=== PATIENT | female | born 1995 | race Caucasian/White ===

== ENCOUNTER 2018-09-01 22:37 | Emergency (ER) | payer MEDICAID ==
--- NOTE | 2018-09-02 01:27 | ER Document Report ---
ED General - General Chief Complaint: Sore Throat Stated Complaint: SORE THROAT,COUGH Time Seen by Provider: 09/01/18 23:58 Notes: 23-year-old female presents to the emergency department with sore throat times 3 days. She states that she has a history of frequent strep throat and she is concerned that she has it again because she has an 8-month-old son she does not want him to get it. She endorses low-grade fever for which she took Tylenol and responded to it, endorses sore throat, chest pain with coughing, endorses postnasal drip. She does endorse some mild maxillary sinus pressure and sore lymph nodes underneath her jaw. She did get her flu shot this year. She denies headache, chills, nausea, vomiting, diarrhea. She denies photophobia. TRAVEL OUTSIDE OF THE [place] IN LAST 30 DAYS: No Past Medical History - General Information source: Patient - Social History Smoking Status: Never Smoker Frequency of alcohol use: None Drug Abuse: None Family History: Reviewed & Not Pertinent Patient has suicidal ideation: No Patient has homicidal ideation: No Pulmonary Medical History: Reports: Hx Asthma Endocrine Medical History: Reports: Hx Diabetes Mellitus Type 2 - pre diabetic Renal/ Medical History: Denies: Hx Peritoneal Dialysis Past Surgical History: Reports: Hx Tonsillectomy Review of Systems - Review of Systems Constitutional: See HPI EENT: See HPI Cardiovascular: See HPI Respiratory: See HPI Gastrointestinal: See HPI Genitourinary: See HPI Female Genitourinary: No symptoms reported Musculoskeletal: No symptoms reported Skin: No symptoms reported Hematologic/Lymphatic: No symptoms reported Neurological/Psychological: No symptoms reported Physical Exam - Vital signs Vitals: Temp Pulse Resp BP Pulse Ox 98.7 F 87 17 117/70 98 09/01/18 22:42 09/01/18 22:42 09/01/18 22:42 09/01/18 22:42 09/01/18 22:42 - Notes Notes: Reviewed vital signs and nursing note as charted by RN. CONSTITUTIONAL: Well-appearing, well-nourished, acting appropriately for age HEAD: Normocephalic, atraumatic, no swelling EYES: PERRL, Conjunctivae clear, no drainage, EOMI, no scleral icterus ENT: External ears without lesions, External auditory canal is patent, TMs without erythema, R TM with some fluid behind it, landmarks clear and well visualized, no rhinorrhea, Pharynx without erythema or lesions, no tonsillar hypertrophy, airway patent, mucous membranes pink and moist NECK: Supple, no cervical lymphadenopathy, no masses CARD: Regular rate and rhythm, no murmurs, no rubs, no gallops, capillary refill < 2 seconds, symmetric pulses RESP: The lungs are clear to auscultation bilaterally, no wheezing, no rales, no rhonchi. Respiratory rate and effort are normal, normal chest excursion. No respiratory distress, no retractions, no stridor, no nasal flaring, no accessory muscle use. ABD/GI: Normal bowel sounds, non-distended, soft, non-tender, no rebound, no guarding, no palpable organomegaly EXT: Normal ROM in all joints, non-tender to palpation, no effusions, no edema SKIN: Normal color for age and race, warm, dry, good turgor, no acute lesions noted NEURO: No facial asymmetry, moves all extremities equally, motor and sensory function intact Course - Re-evaluation Re-evalutation: 09/02/18 01:26 Pleasant 23-year-old female presents to the emergency department with chief complaint of sore throat times 3 days. She is concerned because she has had multiple bouts of strep throat in the past she has an 8-month old son at the house. Shared decision making I ordered a rapid strep test which was negative. At this time patient most likely has a mild virus that she can treat with supportive measures. Stable for discharge. - Vital Signs Vital signs: Temp Pulse Resp BP Pulse Ox 98.7 F 87 17 117/70 98 09/01/18 22:42 09/01/18 22:42 09/01/18 22:42 09/01/18 22:42 09/01/18 22:42 Discharge - Discharge Clinical Impression: Viral illness Condition: Good Disposition: HOME, SELF-CARE Instructions: Sore Throat ([facility]), Viral Syndrome ([facility])
[2018-09-02] MEDS ORDERED: ALBUTEROL SULFATE HFA (90 MCG/PUFF) 8 GM MDI (1 MDI/ER DISP) IH ONE (01:34)
[2018-09-02 02:08] VITALS: BP 118/64
== END 2018-09-02 02:06 | disposition home or self-care (01) ==
LOC: ER 22:37
DX: B34.9 Viral infection, unspecified (principal); J02.9 Acute pharyngitis, unspecified; R05 Cough; R07.9 Chest pain, unspecified; R09.82 Postnasal drip; J34.89 Other specified disorders of nose and nasal sinuses; J45.909 Unspecified asthma, uncomplicated
CPT/HCPCS: 99282; 87070; 87880; J3490

== ENCOUNTER 2019-09-30 06:54 | Emergency (ER) | payer BC, MEDICAID ==
[2019-09-30 08:15] LABS: A TYPE INFLUENZA AG NEGATIVE (NEGATIVE); B INFLUENZA AG NEGATIVE (NEGATIVE)
--- NOTE | 2019-09-30 08:47 | ER Document Report ---
ED ENT - General Chief Complaint: Sore Throat Stated Complaint: COUGH/FEVER/VOMITING Time Seen by Provider: 09/30/19 07:58 Primary Care Provider: CHET BURT MD [Primary Care Provider] - Follow up as needed Mode of Arrival: Ambulatory Information source: Patient TRAVEL OUTSIDE OF THE [place] IN LAST 30 DAYS: No - HPI Notes: Patient presents with 3 to 4 days of sinus congestion and a yellow-green productive cough. She also has postnasal drip. She has had some sore throat. She has had subjective fever and chills. As well as generalized myalgias. The generalized myalgias radiate throughout her body. They are worse with exertion and better with rest. They are mild to moderate in intensity and intermittent. No vomiting or diarrhea. - Related Data Allergies/Adverse Reactions: acetaminophen [From Percocet] Allergy (Verified 09/30/19 07:23) cephalexin [From Keflex] Allergy (Verified 09/30/19 07:23) oxycodone [From Percocet] Allergy (Verified 09/30/19 07:23) Home Medications: birthcontrol Past Medical History - General Information source: Patient - Social History Smoking Status: Never Smoker Chew tobacco use (# tins/day): No Frequency of alcohol use: None Drug Abuse: None Family History: Reviewed & Not Pertinent Patient has suicidal ideation: No Patient has homicidal ideation: No Pulmonary Medical History: Reports: Hx Asthma Endocrine Medical History: Reports: Hx Diabetes Mellitus Type 2 - pre diabetic Renal/ Medical History: Denies: Hx Peritoneal Dialysis Past Surgical History: Reports: Hx Tonsillectomy Review of Systems - Review of Systems Constitutional: Chills, Fever, Malaise, Weakness EENT: Nose congestion, Nose discharge Respiratory: Cough. denies: Short of breath -: Yes All other systems reviewed and negative Physical Exam - Vital signs Vitals: Temp Pulse Resp BP Pulse Ox 98.3 F 92 14 117/69 100 09/30/19 07:21 09/30/19 07:21 09/30/19 07:21 09/30/19 07:21 09/30/19 07:21 Interpretation: Normal - General General appearance: Appears well, Alert - HEENT Head: Normocephalic, Atraumatic Eyes: Normal Pupils: PERRL - Respiratory Respiratory status: No respiratory distress Chest status: Nontender Breath sounds: Normal Chest palpation: Normal - Cardiovascular Rhythm: Regular Heart sounds: Normal auscultation Murmur: No - Abdominal Inspection: Normal Distension: No distension Bowel sounds: Normal Tenderness: Nontender Organomegaly: No organomegaly - Back Back: Normal, Nontender - Extremities General upper extremity: Normal inspection, Nontender, Normal color, Normal ROM, Normal temperature General lower extremity: Normal inspection, Nontender, Normal color, Normal ROM, Normal temperature, Normal weight bearing. No: Franny's sign - Neurological Neuro grossly intact: Yes Cognition: Normal Orientation: AAOx4 Carlos A Coma Scale Eye Opening: Spontaneous [place] Coma Scale Verbal: Oriented [place] Coma Scale Motor: Obeys Commands Carlos A Coma Scale Total: 15 Speech: Normal Motor strength normal: LUE, RUE, LLE, RLE Sensory: Normal - Psychological Associated symptoms: Normal affect, Normal mood - Skin Skin Temperature: Warm Skin Moisture: Dry Skin Color: Normal Course - Re-evaluation Re-evalutation: 09/30/19 08:45 Patient's flu test was reviewed it is negative. Strep test also reviewed it was negative. - Vital Signs Vital signs: Temp Pulse Resp BP Pulse Ox 98.3 F 92 14 117/69 100 09/30/19 07:21 09/30/19 07:21 09/30/19 07:21 09/30/19 07:21 09/30/19 07:21 Discharge - Discharge Clinical Impression: Sinusitis Qualifiers: Sinusitis location: unspecified location Chronicity: acute Recurrence: non- recurrent Qualified Code(s): J01.90 - Acute sinusitis, unspecified Condition: Stable Disposition: HOME, SELF-CARE Instructions: Sinusitis ([facility]) Prescriptions: Amoxicillin 1 tab PO TID 10 Days #30 tab Forms: Return to Work Referrals: CHET BURT MD [Primary Care Provider] - Follow up in 3-5 days
[2019-09-30 09:08] VITALS: BP 112/62
== END 2019-09-30 09:07 | disposition home or self-care (01) ==
LOC: ER 06:54
DX: J01.90 Acute sinusitis, unspecified (principal); J02.9 Acute pharyngitis, unspecified; R05 Cough; R50.9 Fever, unspecified; R11.10 Vomiting, unspecified; R09.81 Nasal congestion; R09.89 Other specified symptoms and signs involving the circulatory and respiratory systems; M79.10 Myalgia, unspecified site; J45.909 Unspecified asthma, uncomplicated; E11.9 Type 2 diabetes mellitus without complications
CPT/HCPCS: 87070; 87804; 87880; 99283

== ENCOUNTER 2019-12-30 17:52 | Emergency (ER) | payer BC, MEDICAID ==
[2019-12-30] MEDS ORDERED: PREDNISONE 20 MG TABLET PO ONE (18:01)
[2019-12-30] MEDS ORDERED: FAMOTIDINE 20 MG TABLET PO ONE (18:01)
[2019-12-30] MEDS ORDERED: DIPHENHYDRAMINE HCL 25 MG CAPSULE PO ONE (18:02)
--- NOTE | 2019-12-30 18:03 | ER Document Report ---
ED Medical Screen (RME) - General Chief Complaint: Allergic Reaction Stated Complaint: POSSIBLE ALLERGIC REACTION Time Seen by Provider: 12/30/19 17:58 Primary Care Provider: CHET BURT MD [Primary Care Provider] - Follow up as needed Notes: Patient is a 24-year-old female who presents emergency department with swelling to her right eye. Patient states that she feels like it is a fiery sensation. When she was at work she was unsure if she may be got exposed to a customers cologne or something new, but she ended up having swelling to her right eye. Denies any shortness of breath or difficulty breathing. Denies a history of asthma. She takes Zyrtec on a daily basis. Exam: Edema noted to right eyelid. Patient will be given Pepcid and prednisone and will be evaluated by another provider. I have greeted and performed a rapid initial assessment of this patient. A comprehensive ED assessment and evaluation of the patient, analysis of test results and completion of medical decision making process will be conducted by an additional ED providers. TRAVEL OUTSIDE OF THE [place] IN LAST 30 DAYS: No - Related Data Allergies/Adverse Reactions: acetaminophen [From Percocet] Allergy (Verified 09/30/19 07:23) cephalexin [From Keflex] Allergy (Verified 09/30/19 07:23) oxycodone [From Percocet] Allergy (Verified 09/30/19 07:23) Past Medical History Pulmonary Medical History: Reports: Hx Asthma Endocrine Medical History: Reports: Hx Diabetes Mellitus Type 2 - pre diabetic Renal/ Medical History: Denies: Hx Peritoneal Dialysis Past Surgical History: Reports: Hx Tonsillectomy Physical Exam - Vital signs Vitals: Temp Pulse Resp BP Pulse Ox 98.7 F 79 16 129/87 H 100 12/30/19 17:55 12/30/19 17:55 12/30/19 17:55 12/30/19 17:55 12/30/19 17:55 Course - Vital Signs Vital signs: Temp Pulse Resp BP Pulse Ox 98.7 F 79 16 129/87 H 100 12/30/19 17:55 12/30/19 17:55 12/30/19 17:55 12/30/19 17:55 12/30/19 17:55 Doctor's Discharge - Discharge Referrals: CHET BURT MD [Primary Care Provider] - Follow up as needed
--- NOTE | 2019-12-30 18:36 | ER Document Report ---
ED Allergic Reaction - General Chief Complaint: Facial Swelling Stated Complaint: POSSIBLE ALLERGIC REACTION Time Seen by Provider: 12/30/19 17:58 Primary Care Provider: CHET BURT MD [ACTIVE STAFF] - Follow up as needed Mode of Arrival: Ambulatory Information source: Patient Notes: 24-year-old female presented to ED for complaint of swelling to the right side o f her face with some mild swelling to her eye. She states she gets this usually in the end of December beginning of January but this is early for her to have these. She states she was at work and she is unsure if maybe she got some clot in her eyes. She has extremely very minimal swelling to the right eye she does have this swelling to the right nasal turbinate. She is not short of breath has no difficulty breathing respirations regular nonlabored walking with a even steady gait. She was given Pepcid and prednisone before I examined her. She states she could not take Benadryl tonight because it would make her too sleepy. She states she can take her Zyrtec as she said normally takes. TRAVEL OUTSIDE OF THE [place] IN LAST 30 DAYS: No - HPI Onset: This afternoon Onset/Duration: Gradual Quality of pain: No pain Severity: None Pain Level: Denies Identified cause: No Swelling: Face - She states she has swelling to the right side of her face there is very minimal minute swelling to her right eyelid she does have swelling to her right nasal turbinate no swelling to the lips tongue or any other area of her face Associated symptoms: None Similar symptoms previously: Yes Recently seen / treated by doctor: No - Related Data Allergies/Adverse Reactions: acetaminophen [From Percocet] Allergy (Verified 09/30/19 07:23) cephalexin [From Keflex] Allergy (Verified 09/30/19 07:23) oxycodone [From Percocet] Allergy (Verified 09/30/19 07:23) Home Medications: zyrtec Past Medical History - General Information source: Patient - Social History Smoking Status: Never Smoker Chew tobacco use (# tins/day): No Frequency of alcohol use: None Drug Abuse: None Lives with: Family Family History: Reviewed & Not Pertinent Patient has homicidal ideation: No - Past Medical History Cardiac Medical History: Reports: None Pulmonary Medical History: Reports: Hx Asthma EENT Medical History: Reports: None Neurological Medical History: Reports: None Endocrine Medical History: Reports: None, Hx Diabetes Mellitus Type 2 - pre diabetic Renal/ Medical History: Reports: None Malignancy Medical History: Reports: None GI Medical History: Reports: None Musculoskeletal Medical History: Reports None Skin Medical History: Reports None Psychiatric Medical History: Reports: None Traumatic Medical History: Reports: None Infectious Medical History: Reports: None Past Surgical History: Reports: Hx Tonsillectomy Review of Systems - Review of Systems EENT: Sinus pressure, Other - Mild swelling to the right eyelid Cardiovascular: No symptoms reported Respiratory: No symptoms reported Gastrointestinal: No symptoms reported Genitourinary: No symptoms reported Female Genitourinary: No symptoms reported Musculoskeletal: No symptoms reported Skin: No symptoms reported Hematologic/Lymphatic: No symptoms reported Neurological/Psychological: No symptoms reported -: Yes All other systems reviewed and negative Physical Exam - Vital signs Vitals: Temp Pulse Resp BP Pulse Ox 98.7 F 79 16 129/87 H 100 12/30/19 17:55 12/30/19 17:55 12/30/19 17:55 12/30/19 17:55 12/30/19 17:55 Interpretation: Normal - General General appearance: Appears well, Alert - HEENT Head: Normocephalic, Atraumatic Eyes: Other - Very minimal swelling to the right upper eyelid Pupils: PERRL Ears: Normal External canal: Normal Tympanic membrane: Normal Sinus: Normal Nasal: Swelling, Clear rhinorrhea Mouth/Lips: Normal Mucous membranes: Normal Pharynx: Normal Neck: Normal - Respiratory Respiratory status: No respiratory distress Chest status: Nontender Breath sounds: Normal Chest palpation: Normal - Cardiovascular Rhythm: Regular Heart sounds: Normal auscultation Murmur: No - Abdominal Inspection: Normal Distension: No distension Bowel sounds: Normal Tenderness: Nontender Organomegaly: No organomegaly - Back Back: Normal, Nontender - Extremities General upper extremity: Normal inspection, Nontender, Normal color, Normal ROM, Normal temperature General lower extremity: Normal inspection, Nontender, Normal color, Normal ROM, Normal temperature, Normal weight bearing. No: Franny's sign - Neurological Neuro grossly intact: Yes Cognition: Normal Orientation: AAOx4 [place] Coma Scale Eye Opening: Spontaneous Carlos A Coma Scale Verbal: Oriented [place] Coma Scale Motor: Obeys Commands [place] Coma Scale Total: 15 Speech: Normal Motor strength normal: LUE, RUE, LLE, RLE Sensory: Normal - Psychological Associated symptoms: Normal affect, Normal mood - Skin Skin Temperature: Warm Skin Moisture: Dry Skin Color: Normal Course - Vital Signs Vital signs: Temp Pulse Resp BP Pulse Ox 98.6 F 74 20 125/81 100 12/30/19 18:35 12/30/19 18:35 12/30/19 18:35 12/30/19 18:35 12/30/19 18:35 Discharge - Discharge Clinical Impression: Seasonal allergies Condition: Stable Disposition: HOME, SELF-CARE Additional Instructions: ACUTE ALLERGIC REACTION: Your symptoms are due to an allergic reaction. Allergy can cause hives, swelling of the hands, feet, and face, hoarseness, and difficulty swallowing or breathing. It may be due to exposure to medication, animal dander, foods, infection, or insect bites. Medication is a common cause, even when prior use of this same medication caused no problems. Acute treatment may include adrenalin and antihistamines. Usually, the specific allergic agent can't be identified unless repeated episodes occur. Home treatment includes the following: (1) Stop any suspicious medications. This will be discussed with you. (2) Oral antihistamines for the next four to five days. Example, diphenhydramine (Benadryl) every four hours. (3) You may also use cimetidine (Tagamet), ranitidine (Zantac), or famotidine (Pepcid) every four hours if diphenhydramine is not controlling itching and hives. (4) Avoid aspirin until the hives completely disappear. (5) Avoid hot baths or showers until the hives are completely gone. Call the doctor if faintness, difficulty swallowing, tightness in the chest, or wheezing occurs. STEROID MEDICATION: You have been given a medicine of the cortisone/steroid class. This medication is used to control inflammation or allergy. It is usually only given for a short period of time, until the acute process subsides. There are usually no side effects from short-term use of cortisone-like medications. Some persons feel an increased sense of well-being and are not sleepy at bedtime. Long-term use of cortisone medications is best avoided, unless required for a severe condition. If your condition does not remit, or relapses after the course of corticosteroid medication, you should consult your physician. ACID-SUPPRESSING MEDICATION: You have a prescription for medicine which reduces the stomach's secretion of acid. Examples include Zantac, Tagament, and Pepcid. These drugs are often used to allow healing of ulcers or esophagitis. They may be needed to prevent recurrence of ulcers in some patients, or to prevent damage from acid reflux in the esophagus. Take all medication as prescribed, even after the pain is gone. Regular antacids may be added as needed if you have symptoms while taking this medicine. These medications sometimes are prescribed for allergic reactions because they have anti-histaminic effects and relieve the rash and itching of the reaction. There are usually no side effects from this medication. But, in rare cases and particularly in the elderly, serious problems can occur. Contact your doctor if there is fever, rash, hallucinations, confusion, or unusual bruising. Contact your doctor at once if you develop lightheadedness, black or bloody stool, or bloody vomitus. ANTIHISTAMINES: An antihistamine has been given and/or prescribed to control your symptoms. Antihistamines are used for many reasons, including itching, watering eyes, runny nose, allergic swelling, hives, and insect stings. Antihistamines may cause drowsiness, especially with the first dose. Do not operate machinery or drive while under the effects of the medication. Other common side effects include dry mouth and eyes. In older persons, antihistamines can occasionally cause urinary retention, constipation, and troub le focusing the eyes. Do not combine the medication with alcohol, or with any other medication without talking to your doctor. USE OF DIPHENHYDRAMINE: The use of diphenhydramine (Benadryl) has been recommended to control allergic symptoms. The 25 mg strength is available over- the-counter, as well as the elixir. This antihistamine is used for many symptoms. It's useful for itching, watering eyes and nose, allergic swelling, hives, and insect stings. The medication can be repeated four times daily. Age Elixir (12.5 mg/tsp) 25 mg pill 2-3 yr 1/2 tsp 4-8 yr 1 tsp 9-14 yr 2 tsp one tab adult 1-2 tabs Antihistamines may cause drowsiness, especially with the first dose. Do not operate machinery or drive while under the effects of the medication. Do not combine the medication with alcohol, or with any other medication without talking to your doctor. FOLLOW-UP CARE: If you have been referred to a physician for follow-up care, call the physicians office for an appointment as you were instructed or within the next two days. If you experience worsening or a significant change in your symptoms, notify the physician immediately or return to the Emergency Department at any time for re-evaluation. Prescriptions: Prednisone [Deltasone 20 mg Tablet] 2 tab PO DAILY 3 Days #6 tablet Forms: Elevated Blood Pressure Referrals: CHET BUTR MD [ACTIVE STAFF] - Follow up as needed
[2019-12-30 18:37] VITALS: BP 125/81
== END 2019-12-30 18:38 | disposition home or self-care (01) ==
LOC: ER 17:52
DX: T78.40XA Allergy, unspecified, initial encounter (principal); X58.XXXA Exposure to other specified factors, initial encounter; Z88.6 Allergy status to analgesic agent
CPT/HCPCS: 99283; J7512

== ENCOUNTER 2020-02-17 16:40 | Emergency (ER) | payer BC, MEDICAID ==
--- NOTE | 2020-02-17 17:45 | ER Document Report ---
ED Medical Screen (RME) - General Chief Complaint: Vag Bleeding, +preg <12wks Stated Complaint: VAGINAL BLEEDING 6-8 WEEKS PREG Time Seen by Provider: 02/17/20 17:37 Mode of Arrival: Ambulatory Information source: Patient Notes: HPI; 24-year-old female states she had a positive home test yesterday that was positive. LMP 01/01/2020 presents to the emergency room today complaining of bleeding, cramping, passing clots. States she is gone through 6 pads so far today. No meds for pain. PE: Alert and oriented x3. Mild distress noted. Lungs: Clear to auscultation without rales rhonchi wheezes. Heart: Regular rate rhythm without murmurs, rubs, gallops. Abdomen soft nontender, nondistended, positive bowel sounds x4. No Guarding, no rebound, no organomegaly. I have greeted and performed a rapid initial assessment of this patient. A comprehensive ED assessment and evaluation of the patient, analysis of test results and completion of the medical decision making process will be conducted by additional ED providers. I have specifically instructed the patient or family members with the patient to immediately return to any nursing staff should anything change in the patient's condition or with their chief complaint. TRAVEL OUTSIDE OF THE [place] IN LAST 30 DAYS: No - Related Data Allergies/Adverse Reactions: acetaminophen [From Percocet] Allergy (Verified 09/30/19 07:23) cephalexin [From Keflex] Allergy (Verified 09/30/19 07:23) oxycodone [From Percocet] Allergy (Verified 09/30/19 07:23) Past Medical History Pulmonary Medical History: Reports: Hx Asthma Endocrine Medical History: Reports: Hx Diabetes Mellitus Type 2 - pre diabetic Renal/ Medical History: Denies: Hx Peritoneal Dialysis Past Surgical History: Reports: Hx Tonsillectomy Physical Exam - Vital signs Vitals: Temp Pulse Resp BP Pulse Ox 98.7 F 79 16 113/72 99 02/17/20 16:56 02/17/20 16:56 02/17/20 16:56 02/17/20 16:56 02/17/20 16:56 Course - Vital Signs Vital signs: Temp Pulse Resp BP Pulse Ox 98.7 F 79 16 113/72 99 02/17/20 16:56 02/17/20 16:56 02/17/20 16:56 02/17/20 16:56 02/17/20 16:56
[2020-02-17 18:09] LABS: ABSOLUTE EOSINOPHILS # (AUTO) 0.1 10^3/uL (0.0-0.6); ABSOLUTE LYMPHOCYTES (AUTO) 2.7 10^3/uL (0.5-4.7); ABSOLUTE MONOCYTES (AUTO) 0.7 10^3/uL (0.1-1.4); ABSOLUTE NEUT (AUTO) 7.5 10^3/uL (1.7-8.2); BASOPHILS % (AUTO) 0.2 % (0-2); EOSINOPHILS % (AUTO) 1.3 % (0-6); HEMATOCRIT 36.3 % (36.0-47.0); HEMOGLOBIN 12.7 g/dL (12.0-15.5); LYMPHOCYTES % (AUTO) 24.2 % (13-45); MEAN CORPUSCULAR HEMOGLOBIN 30.1 pg (27.0-33.4); MEAN CORPUSCULAR HGB CONC 35.1 g/dL (32.0-36.0); MEAN CORPUSCULAR VOLUME 86 fl (80-97); MONOCYTES % (AUTO) 6.2 % (3-13); PLATELET COUNT 298 10^3/uL (150-450); RED BLOOD COUNT 4.23 10^6/uL (3.72-5.28); SEGMENTED NEUTROPHILS % (AUTO) 68.1 % (42-78); TOTAL CELLS COUNTED % (AUTO) 100 %
[2020-02-17 18:11] LABS: APPEARANCE,URINE SLIGHTLY-CLOUDY; BILIRUBIN,URINE NEGATIVE (NEGATIVE); COLOR,URINE YELLOW; GLUCOSE, URINE NEGATIVE (NEGATIVE); KETONES,URINE NEGATIVE (NEGATIVE); LEUKOCYTE ESTERASE,URINE SMALL (NEGATIVE); NITRITE,URINE NEGATIVE (NEGATIVE); PROTEIN,URINE 100 mg/dL (NEGATIVE); URINE SPECIFIC GRAVITY 1.034; UROBILINOGEN,URINE NEGATIVE mg/dL (<2.0)
[2020-02-17 18:37] LABS: ALBUMIN 4.1 g/dL (3.5-5.0); ALKALINE PHOSPHATASE 71 U/L (38-126); ANION GAP 6 (5-19); ASPARTATE AMINO TRANSFERASE 22 U/L (14-36); BILIRUBIN,TOTAL 0.3 mg/dL (0.2-1.3); BLOOD UREA NITROGEN 16 mg/dL (7-20); CALCIUM 9.4 mg/dL (8.4-10.2); CARBON DIOXIDE 28 mmol/L (22-30); CHLORIDE 103 mmol/L (98-107); GLUCOSE 91 mg/dL (75-110); POTASSIUM 4.4 mmol/L (3.6-5.0); TOTAL PROTEIN 6.9 g/dL (6.3-8.2)
--- NOTE | 2020-02-17 18:53 | RADIOLOGY REPORT (SQ) ---
EXAM DESCRIPTION: U/S 1TRIMESTER/1GEST W/DOPPLER IMAGES COMPLETED DATE/TIME: 02/17/2020 6:25 pm REASON FOR STUDY: bleeding COMPARISON: None. TECHNIQUE: Transabdominal static and realtime grayscale images acquired of the pelvis. Additional se lected spectral and color Doppler images recorded. All images stored on PACs. bHCG: Pending CLINICAL DATES: LMP 01/01/2020. 6 weeks 5 days. LIMITATIONS: None. FINDINGS: No intrauterine gestation is seen. Patient reports positive home test yesterday , but has been passing large clots. UTERUS: 11 x 5.3 x 4.2 cm. Endometrium measures 4.6 mm. CERVICAL LENGTH: 2.4 cm. Closed. RIGHT ADNEXA: Normal ovary with normal vascular flow. 3.4 x 1.7 x 1.4 cm. No adnexal free fluid. No adnexal masses. LEFT ADNEXA: Normal ovary with normal vascular flow. 3.1 x 3.1 x 2 cm. No adnexal free fluid. No adnexal masses. FREE FLUID: None. OTHER: No other significant finding. IMPRESSION: There is no intrauterine gestation at this time. Follow-up as clinically indicated. TECHNICAL DOCUMENTATION: JOB ID: [id number] 2010 [employer]- All Rights Reserved rev-01/17 Reading location - IP/workstation name: [email or web address]
[2020-02-17 20:36] VITALS: BP 106/72
--- NOTE | 2020-02-17 20:40 | ER Document Report ---
HPI - HPI Patient complains to provider of: Vaginal bleeding Time Seen by Provider: 02/17/20 17:37 Pain Level: 1 Context: 24-year-old female states she did a positive home test on yesterday. States her last menstrual cycle was December 31. States she started with severe bleeding and cramping today. Has gone through 6 pads today. She is a 2 para 1. No OB care. Denies nausea, vomiting, no urinary symptoms. Associated Symptoms: None Exacerbated by: Denies Relieved by: Denies Similar symptoms previously: No Recently seen / treated by doctor: No - ROS Systems Reviewed and Negative: Yes All other systems reviewed and negative - NEURO Neurology: DENIES: Weakness - RESPIRATORY Respiratory: DENIES: Trouble Breathing - GASTROINTESTINAL Gastrointestinal: REPORTS: Abdominal Pain. DENIES: Nausea, Patient vomiting - URINARY Urinary: DENIES: Dysuria, Urgency, Frequency - REPRODUCTIVE Reproductive: REPORTS: :, Abnormal bleeding / discharge - MUSCULOSKELETAL Musculoskeletal: DENIES: Extremity pain - DERM Skin Color: Normal, [place] Skin Problems: None Past Medical History - General Information source: Patient - Social History Smoking Status: Never Smoker Frequency of alcohol use: Occasional Drug Abuse: None Lives with: Family Family History: Reviewed & Not Pertinent Patient has homicidal ideation: No Pulmonary Medical History: Reports: Hx Asthma Endocrine Medical History: Reports: Hx Diabetes Mellitus Type 2 - pre diabetic Renal/ Medical History: Denies: Hx Peritoneal Dialysis Past Surgical History: Reports: Hx Tonsillectomy Vertical Provider Document - CONSTITUTIONAL Agree With Documented VS: Yes Exam Limitations: No Limitations Notes: VITAL SIGNS: Within normal limits. GENERAL: Mild acute distress, non-toxic appearance. HEAD: Normal with no signs of head trauma. EYES: PERRLA, EOMI, conjunctiva normal, no discharge. EARS: Hearing grossly intact. NOSE: Normal. THROAT: Oropharynx is normal. NECK: Normal range of motion, no tenderness, supple, no lymphadenopathy, No adenopathy, no JVD. CHEST: Clear breath sounds bilaterally. No wheezes, rales, or rhonchi. CARDIAC: Regular rate and rhythm. S1 and S2, without murmurs, gallops, or rubs. VASCULAR: No Edema. Peripheral pulses normal and equal in all extremities. ABDOMEN: Normal and soft with no tenderness, no masses or pulsatile masses. GASTROINTESTINAL: Bowel sounds normal GENITOURINARY: Normal, No tenderness LYMPATHTIC: No lymphadenopathy noted. MUSCULOSKELETAL: Good range of motion of all major joints. Extremities without clubbing, cyanosis or edema. NEUROLOGICAL: Alert and oriented x 3. No focal sensory or strength deficits. Speech normal. Follows commands appropriately. PSYCHIATRIC: Normal Affect, judgement and mood. SKIN: Normal appearance with no rashes or lesions. - INFECTION CONTROL TRAVEL OUTSIDE OF THE [place] IN LAST 30 DAYS: No Course - Re-evaluation Re-evalutation: 02/17/20 20:37 Patient does not want to stay for her RhoGam injection. She is requested to leave AGAINST MEDICAL ADVICE. The patient has chosen to leave the facility against medical advice. The relevant issues have been reviewed and discussed with the patient at the bedside. At the time of this assessment there is no indication for involuntary commitment. The patient is alert, oriented, and able to express clearly their reasoning for not wanting to remain in the emergency department for further treatment. The patient is not clinically psychotic, intoxicated, and denies and suicidal ideation. Differential or suspected diagnoses based on medical screening exam: Chest pain unknown etiology. The patient is aware of the concerning diagnoses and acknowledges understanding of the reasons for the following recommendations: Loss of life, permanent disability, chronic pain, worsening of condition, cardiac dysfunction, respiratory dysfunction loss of current lifestyle The following recommendations/services were offered and refused: Admission The following risks were explained: , permanent disability, loss of function Clinical impression: Patient is competent to make decisions regarding the med ical that is being offered. 02/18/20 00:39 - Vital Signs Vital signs: Temp Pulse Resp BP Pulse Ox 98.7 F 70 20 106/72 100 02/17/20 17:35 02/17/20 20:35 02/17/20 20:35 02/17/20 20:35 02/17/20 20:35 - Laboratory Result Diagrams: 02/17/20 17:50 02/17/20 17:50 Laboratory results interpreted by me: 02/17/20 02/17/20 02/17/20 17:50 17:50 17:50 WBC 11.0 H Beta HCG, Quant 573.38 H Urine Protein 100 H Urine Blood LARGE H Ur Leukocyte Esterase SMALL H - Diagnostic Test Radiology reviewed: Reports reviewed Discharge - Discharge Clinical Impression: Threatened , Left against medical advice Condition: Stable Disposition: AGAINST MEDICAL ADVICE Instructions: [facility] [facility], Repeat Blood Test ([facility]), Threatened Miscarriage ([facility]) Additional Instructions: It is imperative that you follow-up with your [facility] RADIOLOGICAL TECHNOLOGIST within the next 72 hours for RhoGam shot since you are refusing it here in the emergency room. You have been counseled against the risks of leaving AGAINST MEDICAL ADVICE including but not limited to , worsening pain, chronic pain, reproductive dysfunction, loss of current lifestyle, loss of fetus. Chronic pain Return for any new or worsening symptoms.
== END 2020-02-17 20:44 | disposition left against medical advice (07) ==
LOC: ER 16:40
DX: O20.0 Threatened abortion (principal)
CPT/HCPCS: 36415; 76801; 80053; 81001; 84702; 85025; 86850; 86900; 86901; 93976; 99284

== ENCOUNTER 2020-02-18 11:51 | Emergency (ER) | payer BC, MEDICAID ==
--- NOTE | 2020-02-18 12:38 | ER Document Report ---
HPI - HPI Time Seen by Provider: 02/18/20 12:27 Context: Patient is a 24-year-old female who presents to the emergency department with a possible miscarriage. Patient ended up passing a large clot just prior to arrival. Patient denies any pain. Patient's last menstrual cycle was December 31. Patient brought the large clot and possible products of conception sent into the emergency department. - ROS Systems Reviewed and Negative: Yes All other systems reviewed and negative - CONSTITUTIONAL Constitutional: DENIES: Fever - CARDIOVASCULAR Cardiovascular: DENIES: Chest pain - RESPIRATORY Respiratory: DENIES: Trouble Breathing, Coughing - GASTROINTESTINAL Gastrointestinal: DENIES: Abdominal Pain, Nausea, Patient vomiting, Diarrhea - URINARY Urinary: DENIES: Dysuria - REPRODUCTIVE Reproductive: REPORTS: :, Abnormal bleeding / discharge - see HPI Notes: see HPI - DERM Skin Color: Normal Skin Problems: None Past Medical History - General Information source: Patient - Social History Smoking Status: Unknown if Ever Smoked Family History: Reviewed & Not Pertinent Pulmonary Medical History: Reports: Hx Asthma Endocrine Medical History: Reports: Hx Diabetes Mellitus Type 2 - pre diabetic Renal/ Medical History: Denies: Hx Peritoneal Dialysis Past Surgical History: Reports: Hx Tonsillectomy Vertical Provider Document - CONSTITUTIONAL Agree With Documented VS: Yes Exam Limitations: No Limitations General Appearance: No Apparent Distress - INFECTION CONTROL TRAVEL OUTSIDE OF THE [place] IN LAST 30 DAYS: No - HEENT HEENT: Atraumatic, Normocephalic, PERRLA - NECK Neck: Normal Inspection - RESPIRATORY Respiratory: No Respiratory Distress - CARDIOVASCULAR Pulses: Normal: Radial - GI/ABDOMEN Gastrointestinal: Abdomen Soft, Abdomen Non-Tender - MUSCULOSKELETAL/EXTREMETIES Musculoskeletal/Extremeties: FROM - NEURO Level of Consciousness: Awake, Alert, Appropriate Motor/Sensory: No Motor Deficit, No Sensory Deficit Course - Re-evaluation Re-evalutation: 02/18/20 13:28 Patient brought products of conception with her to the emergency department. Will send for pathology. We will recheck her hCG and order RhoGam work-up. 02/18/20 14:45 Patient's hCG level has dropped. RhoGam shot is ready. Patient will follow-up with OB. Follow-up precautions were given. Verbal discharge instructions were given to the patient. They verbalized understanding. They are stable for discharge. - Vital Signs Vital signs: Temp Pulse Resp BP Pulse Ox 98.5 F 86 16 129/79 H 98 06/18/20 11:55 02/18/20 11:55 02/18/20 11:55 02/18/20 11:55 02/18/20 11:55 Discharge - Discharge Clinical Impression: Miscarriage Condition: Stable Disposition: HOME, SELF-CARE Additional Instructions: You were seen today in the emergency department for vaginal bleeding and passing a large clot. Your hCG levels have dropped. You had a miscarriage. He also received your RhoGam shot here in the emergency department. Follow-up with OB in regards to this visit. Forms: Return to Work Referrals: [facility] [Provider Group] - Follow up in 3-5 days
[2020-02-18 15:38] VITALS: BP 138/62
== END 2020-02-18 15:48 | disposition home or self-care (01) ==
LOC: ER 11:51
DX: O03.9 Complete or unspecified spontaneous abortion without complication (principal); J45.909 Unspecified asthma, uncomplicated
CPT/HCPCS: 99284; 86900; 86901; 36415; 86850; 84702; 88305 ×2; J2790

== ENCOUNTER 2020-05-08 00:01 | Emergency (ER) | payer BC ==
--- NOTE | 2020-05-08 01:51 | RADIOLOGY REPORT (SQ) ---
EXAM DESCRIPTION: XR FOOT 1-2 VIEWS COMPLETED DATE/TME: 05/08/2020 00:00 CLINICAL HISTORY: 25 years, Female, pain, swelling, bruising to left fourth toe. COMPARISON: None. NUMBER OF VIEWS: 3 TECHNIQUE: 3 view left foot LIMITATIONS: None. FINDINGS: Negative for acute fracture or dislocation. Soft tissues are unremarkable IMPRESSION: Negative exam copyright 2011 [employer]- All Rights Reserved
--- NOTE | 2020-05-08 04:14 | ER Document Report ---
HPI - HPI Time Seen by Provider: 05/08/20 03:37 Pain Level: 4 Context: Patient is a 25-year-old female that comes emergency department for chief complaint of injury to the left fourth toe. She states she accidentally smashed the toe on the side of her bathtub last night, she states that she had a lot of pain limping and standing on the foot for her job today, she states the area has become bruised and swollen and she became concerned that it was possibly broken or dislocated. She denies any other injuries or any other complaints. She denies , she states she is taking ibuprofen for the pain. - REPRODUCTIVE Reproductive: REPORTS: : - MUSCULOSKELETAL Musculoskeletal: REPORTS: Extremity pain Past Medical History - General Information source: Patient - Social History Smoking Status: Never Smoker Frequency of alcohol use: None Drug Abuse: None Lives with: Family Family History: Reviewed & Not Pertinent Patient has homicidal ideation: No Pulmonary Medical History: Reports: Hx Asthma Endocrine Medical History: Reports: Hx Diabetes Mellitus Type 2 - pre diabetic Renal/ Medical History: Denies: Hx Peritoneal Dialysis Past Surgical History: Reports: Hx Section, Hx Genitourinary Surgery - cyst removed, Hx Oral Surgery, Hx Orthopedic Surgery - lumbar surgery, Hx Tonsillectomy - Immunizations Hx Diphtheria, Pertussis, Tetanus Vaccination: Yes Vertical Provider Document - CONSTITUTIONAL General Appearance: WD/WN, No Apparent Distress - INFECTION CONTROL TRAVEL OUTSIDE OF THE [place] IN LAST 30 DAYS: No - HEENT HEENT: Atraumatic, Normocephalic - NECK Neck: Normal Inspection - RESPIRATORY Respiratory: Breath Sounds Normal, No Respiratory Distress - CARDIOVASCULAR Cardiovascular: Regular Rate, Regular Rhythm - GI/ABDOMEN Gastrointestinal: Abdomen Soft, Abdomen Non-Tender - BACK Back: Normal Inspection - MUSCULOSKELETAL/EXTREMETIES Musculoskeletal/Extremeties: MAEW, FROM, Tender - Left fourth toe dorsally noted to be bruised and slightly swollen although alignment is good. Nail is unremarkable, there is no extreme pain noted, sensation intact. Capillary refill intact. Remaining foot exam completely unremarkable with no signs of trauma. Normal ankle and leg exam. - NEURO Level of Consciousness: Awake, Alert, Appropriate Motor/Sensory: No Motor Deficit, No Sensory Deficit - DERM Integumentary: Warm, Dry, No Rash Course - Re-evaluation Re-evalutation: Patient does have contusion and swelling to the left fourth toe dorsally but no subungual hematoma, no neurovascular deficits, no other concerning findings are noted. X-ray is negative. Discussed with patient, she states satisfaction with this, provided with crutches on request, provided with work release. Discussed follow-up and return precautions. Patient states appreciation and agreement. - Vital Signs Vital signs: Temp Pulse Resp BP Pulse Ox 98.2 F 95 18 141/88 H 98 05/08/20 00:06 05/08/20 00:06 05/08/20 00:06 05/08/20 00:06 05/08/20 00:06 Discharge - Discharge Clinical Impression: Toe contusion Qualifiers: Encounter type: initial encounter Toe: lesser toe Damage to nail status: without damage Laterality: left Qualified Code(s): S90.122A - Contusion of left lesser toe(s) without damage to nail, initial encounter Condition: Stable Disposition: HOME, SELF-CARE Additional Instructions: You have a contusion and swelling of the soft tissues in the left fourth toe but no fracture or dislocation is seen, no other concerning findings are seen. This should simply resolve with time. I recommend the crutches for the first 2 to 3 days, ice 3-4 times a day for 10 to 15 minutes, elevate, take 800 mg of ibuprofen 3 times a day with food. Follow-up with primary care. Return for any concerning symptoms including severe worsening swelling or pain or any other concerning symptoms. Forms: Return to Work
[2020-05-08 04:30] VITALS: BP 131/79
== END 2020-05-08 04:26 | disposition home or self-care (01) ==
LOC: ER 00:01
DX: S90.122A Contusion of left lesser toe(s) without damage to nail, initial encounter (principal); M79.675 Pain in left toe(s); M79.89 Other specified soft tissue disorders; R73.03 Prediabetes; W22.8XXA Striking against or struck by other objects, initial encounter; J45.909 Unspecified asthma, uncomplicated
CPT/HCPCS: 99283